=== PATIENT | male | born 1965 | race Caucasian/White ===

== ENCOUNTER 2017-08-18 07:55 | Day surgery (SDC) | payer BC ==
[2017-08-18] MEDS ORDERED: Lactated Ringers 1,000 ML IV SCH (08:45)
[2017-08-18] MEDS ORDERED: Propofol 200 MG/20 ML SDV ONE ×2 (09:57→10:09)
[2017-08-18] MEDS ORDERED: Midazolam 1 MG/ML 2 ML SDV ONE (09:57)
[2017-08-18] MEDS ORDERED: fentaNYL 100 MCG/2 ML SDV ONE (09:57)
[2017-08-18 12:34] VITALS: BP 121/83
--- NOTE | 2017-08-18 13:29 | OR ---
DATE OF PROCEDURE: 08/18/2017 PROCEDURE: Colonoscopy. FINDING: Very small cecal polyp, completely removed using cold biopsy forceps. COMPLICATIONS: None. IMPORT/EXPORT FREIGHT FORWARDER: None. ANESTHESIA: MAC. PREOPERATIVE DIAGNOSIS: History of colon polyps. POSTOPERATIVE DIAGNOSIS: History of colon polyps. RISKS: Risks, benefits, alternatives, and limitations including, but not limited to infection, bleeding, and perforation were explained to the patient, and they wished to proceed. PROCEDURE IN DETAIL: The patient was placed in left lateral decubitus position. Digital rectal exam was performed without abnormality. The scope was introduced and advanced atraumatically to the ileocecal valve. In the cecum itself, there was a very small polyp approximately 5 mm, most likely this is a benign polyp. Nonetheless, this was completely removed using cold biopsy forceps. The scope was brought back to the remainder of the colon. The prep was moderately acceptable. No old or new blood. No masses. No other polyps. No diverticulitis. No abnormalities on retroflex, except for a small, mildly irritated hemorrhoid. Julito Hassan MD /[id number]
== END 2017-08-18 11:30 | disposition home or self-care (01) ==
LOC: JP.SDS 07:55
PROVIDERS: ATTEND Surgery
DX: Z12.11 Encounter for screening for malignant neoplasm of colon (principal); K63.5 Polyp of colon; E03.9 Hypothyroidism, unspecified; Z86.010 Personal history of colon polyps; Z79.899 Other long term (current) drug therapy
CPT/HCPCS: 45380; 88305; J2250; J2704; J3010; J7120